=== PATIENT | female | born 1940 | race Caucasian/White ===

== ENCOUNTER 2019-03-28 14:39 | Emergency (ER) | payer MEDICARE, BC ==
[2019-03-28] MEDS ORDERED: HYDROmorphone 0.5 MG/0.5 ML SYRINGE IM STA ×2 (15:08→18:09)
[2019-03-28 15:11] VITALS: RESP 18
--- NOTE | 2019-03-28 15:13 | ED ---
General Adult HPI - General Source: RN/MD, RN notes reviewed, Caregiver Mode of arrival: EMS Limitations: language barrier (Patient is nonverbal) <Felix Benito - Last Filed: 03/28/19 18:10> <Christie Mora - Last Filed: 03/28/19 21:18> - General Stated complaint: ANKLE INJURY Time Seen by Provider: 03/28/19 15:01 - History of Present Illness Initial comments: 78-year-old female with a past medical history significant for dementia currently on hospice presents to the emergency department for right ankle injury. Patient was being transferred from wheelchair to bed when she her ankle got caught in the foot pedal. retirement states they think it is broken. Patient was sent from [facility]. There is a hospice nurse at bedside. Patient is nonverbal.Patient has no other complaints at this time including shortness of breath, chest pain, abdominal pain, nausea or vomiting, headache, or visual changes. (Felix Benito) - Related Data Previous Rx's Medication Instructions Recorded HYDROcodone/APAP 7.5-325MG [Buckner 1 tab PO Q6HR PRN 3 Days #12 tab 03/28/19 7.5-325] Hydrocodone/Acetaminophen [Hycet 15 ml PO Q4HR PRN 3 Days #270 ml 03/28/19 7.5 mg-325 mg/15 ml Soln] Allergies Allergy/AdvReac Type Severity Reaction Status Date / Time morphine Allergy Unknown Verified 03/28/19 18:08 Review of Systems ROS Other: All systems not noted in ROS Statement are negative. <Felix Benito - Last Filed: 03/28/19 18:10> ROS Other: All systems not noted in ROS Statement are negative. <Christie Mora - Last Filed: 03/28/19 21:18> ROS Statement: Those systems with pertinent positive or pertinent negative responses have been documented in the HPI. General Exam Limitations: language barrier (Nonverbal) General appearance: alert, in no apparent distress Head exam: Present: atraumatic, normocephalic, normal inspection Eye exam: Present: normal appearance, PERRL, EOMI. Absent: scleral icterus, conjunctival injection, periorbital swelling ENT exam: Present: normal exam, mucous membranes moist Neck exam: Present: normal inspection, full ROM. Absent: tenderness, meningismus, lymphadenopathy Respiratory exam: Present: normal lung sounds bilaterally. Absent: respiratory distress, wheezes, rales, rhonchi, stridor Cardiovascular Exam: Present: regular rate, normal rhythm, normal heart sounds. Absent: systolic murmur, diastolic murmur, rubs, gallop, clicks Extremities exam: Present: normal capillary refill (Capillary refill less than 2 seconds, DP pulse 2+ in the right lower extremity.), joint swelling (Edema noted to the lateral malleolus), other (Skin is intact.) <Felix Benito - Last Filed: 03/28/19 18:10> Course <Felix Benito - Last Filed: 03/28/19 18:10> Vital Signs 03/28/19 03/28/19 03/28/19 14:54 16:03 19:24 Temperature 98.4 F 98 F Pulse Rate 67 62 Respiratory 18 18 Rate Blood Pressure 120/59 120/70 120/70 O2 Sat by Pulse 98 98 98 Oximetry - Reevaluation(s) Reevaluation #1: 03/28/19 18:12 Spoke with patient's daughter, she will be discharged back home. They will follow up with an orthopedic surgeon. (Felix Benito) Procedures - Orthopedic Splinting/Casting Injury #1 Side: right Lower Extremity Injury Location: short leg Lower Extremity Immobilizer: posterior splint (splinted to as much dorsiflexion as tolerated) <Felix Benito - Last Filed: 03/28/19 18:10> - Orthopedic Splinting/Casting Injury #1 Additional Comments: NV intact after splint applied (Felix Benito) Medical Decision Making <Felix Benito - Last Filed: 03/28/19 18:10> <Christie Mora - Last Filed: 03/28/19 21:18> - Medical Decision Making 78-year-old female with a past medical history significant for dementia currently on hospice presents to the emergency department for a chief complaint of leg injury. Patient was being transferred at a residential when her foot got stuck on a pedal. X-ray shows an acute obliquely oriented non-comminuted mildly displaced and angulated fractures of the distal diaphyses of the tibia and fibula of the right lower extremity. Posterior splint was placed. Neurovascular status intact before and after splint placement. Patient currently in hospice but does not have any pain medications. Patient will be placed on Hycet and will follow up with orthopedics. Discussed case with hospice, they will meet patient at the facility. (Felix Benito) [facility] in the [place] called regarding the patient's Buckner 7.5 liquid prescription that was written by Felix MONTANEZ the patient in the emergency department. The patient was unable to be filled to the due to them not having it in stock. I was asked to read prescription for the pill form so to be crushed and given to the patient. Is been faxed to [facility]. (Christie Mora) Disposition Is patient prescribed a controlled substance at d/c from ED?: No Time of Disposition: 18:00 <Felix Benito - Last Filed: 03/28/19 18:10> <Christie Mora - Last Filed: 03/28/19 21:18> Clinical Impression: Fracture, tibia and fibula Disposition: HOME SELF-CARE Condition: Good Additional Instructions: Please give pain medication as directed. Please follow-up with orthopedics in one to 2 days. Return here to the emergency Department if patient has any worsening symptoms. Prescriptions: Hydrocodone/Acetaminophen [Hycet 7.5 mg-325 mg/15 ml Soln] 15 ml PO Q4HR PRN 3 Days #270 ml PRN Reason: Pain HYDROcodone/APAP 7.5-325MG [Buckner 7.5-325] 1 tab PO Q6HR PRN 3 Days #12 tab PRN Reason: Pain Referrals: Rhonda Mejia MD [Primary Care Provider] - 1-2 days Gerardo Remy MD [STAFF PHYSICIAN] - 1-2 days
--- NOTE | 2019-03-28 15:43 | XR ---
EXAMINATION TYPE: XR tibia fibula RT DATE OF EXAM: 03/28/2019 CLINICAL HISTORY: Right ankle pain after injury TECHNIQUE: Two views of the right leg are obtained. COMPARISON: None. FINDINGS: There is diffuse osseous demineralization. Obliquely oriented noncomminuted fractures of t he distal diaphysis of the tibia and fibula are seen. There is 8 mm medial displacement of the distal fracture fragment of the tibia and 4 mm lateral displacement of the distal fibular fracture. There i s apex anterior slight angulation of the tibia with 4 mm displacement of the anterior fracture fragme nt. Ankle alignment is maintained. Mild degenerative changes of the knee are seen without additional fracture. Overlying soft tissue swelling is noted of the right lower extremity. IMPRESSION: Acute obliquely oriented noncomminuted mildly displaced and angulated fractures of the di stal diaphyses of the tibia and fibula of the right lower extremity superimposed upon diffuse osseous demineralization with mild overlying soft tissue swelling.
[2019-03-28 16:06] VITALS: BP 120/70
[2019-03-28] MEDS ORDERED: HYDROmorphone 0.5 MG/0.5 ML SYRINGE IVP STA (17:43)
[2019-03-28 19:25] VITALS: PULSE 62; TEMP 98
== END 2019-03-28 19:24 | disposition home or self-care (01) ==
LOC: EC 14:39
DX: S82.232A Displaced oblique fracture of shaft of left tibia, initial encounter for closed fracture (principal); S82.431A Displaced oblique fracture of shaft of right fibula, initial encounter for closed fracture; W23.0XXA Caught, crushed, jammed, or pinched between moving objects, initial encounter
CPT/HCPCS: 73590; 99283; 29515; 96372 ×2; J1170